=== PATIENT | female | born 1970 | race Caucasian/White ===

== ENCOUNTER 2017-09-29 00:15 | Emergency (ER) | payer OTHER ==
[~2017-09-29] VITALS: Ht 172.7 cm; Wt 119.3 kg
[~2017-09-29 00:15] MED LIST: ADVAIR; ALBUTEROL INH INH; ALBUTEROL2.5 MG/0.1 INH; ALBUTEROL2.5 MG/3 M IH; ALBUTEROL2.5 MG/3 M INH; ALBUTEROL2.5 MG/31 INH; AVELOX 400 MG400 MG PO; AZITHROMYCIN 2250 MG PO; BACTRIM DS TAB1 EACH PO; CARAFATE1 GM/10 ML PO; CIPROFLOXACIN500 M3 OR; COMBIVENT INH; DUONEB 2.5-0.5 M3 ML INH; HYDROCORTISONE3011 TP; LEVAQUIN 500 M500 M4 PO; LEVAQUIN 750 M750 MG PO; LEXAPRO 10 MG T10 M2; LORAZEPAM 0.50.5 M1 PO; MACROBID 100 M100 M1 PO; MEDROLDOSEPACK PO; MULTIVITAMINS; MULTIVITAMINS PO; NEBULIZER MISCELL; NORCO 5-325 TA1 EACH PO; OMEPRAZOLE; PERCOCET 7.5-31 EACH PO; PREDNISONE 10 M10 MG PO; PREDNISONE 20 M20 M1 PO; PREDNISONE 20 M20 MG PO; PREDNISONE50 MG PO; PROAIR HFA8.5 GM PO; PROTONIX40 M2 PO; PROTONIX40 MG PO; PROVENTIL HFA6.7 G1 INH; PROVENTIL IH; PYRIDIUM200 MG PO; ROXICODONE5 M1 PO; SERTRALINE HCL50 MG PO; SIMETHICON CHEW80 M1; SINGULAIR 10 MG10 M1; TESSALON PERLE100 M1 PO; TESSALON PERLE100 MG PO; TESSALON200 MG PO; VENTOLIN HFA 1818 GM INH; VICODIN 5-5001 EACH PO; VICODIN PO; VITAMIN D 5050000 I1 PO; VITAMIN D31000 UNI2 PO; XANAX 0.25 MG0.25 MG PO; ZOLOFT50 MG; ZPAK PO
[2017-09-29] MEDS ORDERED: LISINOPRIL2.5 MG PO (00:29)
[2017-09-29] MEDS ORDERED: LEXAPRO20 MG (00:30)
[2017-09-29] MEDS ORDERED: METFORMIN HCL500 MG (00:30)
[2017-09-29 01:16] LABS: ABSOLUTE BASOPHILS 0.1 thou/uL (0.0-0.2); ABSOLUTE EOSINOPHILS 0.2 thou/uL (0.0-0.7); ABSOLUTE LYMPHOCYTES 2.9 thou/uL (0.8-5.3); ABSOLUTE MONOCYTES 0.6 thou/uL (0.0-1.2); ABSOLUTE NEUTROPHILS 6.1 thou/uL (1.6-8.1); EOSINOPHILS 1.7 %; HEMATOCRIT 38.5 % (37.0-47.0); HEMOGLOBIN 12.5 gm/dL (12.0-15.0); LYMPHOCYTES 29.6 %; MCH 27.3 pg (26.0-34.0); MCHC 32.5 g/dL (28.0-37.0); MONOCYTES 5.7 %; MPV 7.7 fl. (7.2-11.1); NUCLEATED RBCS 0 /100WBC; PLATELET COUNT* 241 thou/uL (150-400); RBC 4.58 mil/uL (4.20-5.00); RDW-CV 14.7 % (10.5-14.5); WBC 9.8 thou/uL (4.0-11.0)
[2017-09-29 01:27] LABS: CALCIUM 8.7 mg/dL (8.5-10.1); CREATININE 0.9 mg/dL (0.6-1.3); POTASSIUM 3.5 mmol/L (3.5-5.1)
[2017-09-29 01:32] LABS: ALBUMIN 3.2 g/dL (3.4-5.0); TOTAL BILIRUBIN 0.4 mg/dL (<0.1-1.0); TOTAL PROTEIN 7.2 g/dL (6.4-8.2)
[2017-09-29 01:57] VITALS: BP 140/76
--- NOTE | 2017-09-29 10:40 | EKG ---
[place] [address] ELECTROCARDIOGRAM REPORT Name: MARIANELA ROBERTS Room: [facility]#: [id number] Admission: 09/29/17 Attend Phys: Discharge: 09/29/17 Date of : 74 Report #: [id number] THIS REPORT FOR: //name// [facility] ED Test Date: 2017-09-29 Test Time: 00:58:17 Pat Name: MARIANELA ROBERTS Department: Room: Gender: F Director Of Hospitality: CARLIN Castellanos : 1970 Requested By: Tara Stephens Order Number: [id number] MD: Yao Almanzar Measurements Intervals [place] Rate: 74 P: 10 DC: 130 QRS: 33 QRSD: 109 T: 34 QT: 387 QTc: 430 Interpretive Statements Sinus rhythm Borderline low voltage, extremity leads Compared to ECG 07/03/2016 19:06:29 No significant changes Electronically Signed On 09-29-2017 10:40:25 CDT by Yao Almanzar [email or web address] <ELECTRONICALLY SIGNED> By: Yao Almanzar MD, [facility] 09/29/17 1040 0058 0058 Yao Almanzar MD, FACC /EPI
== END 2017-09-29 01:59 | disposition home or self-care (01) ==
LOC: M.ERS 00:15
PROVIDERS: Emergency Medicine
DX: I10 Essential (primary) hypertension (principal); J45.909 Unspecified asthma, uncomplicated; E11.9 Type 2 diabetes mellitus without complications; F17.210 Nicotine dependence, cigarettes, uncomplicated; Z90.49 Acquired absence of other specified parts of digestive tract; Z88.5 Allergy status to narcotic agent; Z91.040 Latex allergy status; Z88.0 Allergy status to penicillin; Z88.6 Allergy status to analgesic agent

== ENCOUNTER 2017-10-18 09:53 | Emergency (ER) | payer OTHER ==
[~2017-10-18] VITALS: Ht 172.7 cm; Wt 117.9 kg
[~2017-10-18 09:53] MED LIST changes: +LEXAPRO20 MG; +LISINOPRIL2.5 MG PO; +METFORMIN HCL500 MG
[2017-10-18 10:11] LABS: ABSOLUTE EOSINOPHILS 0.1 thou/uL (0.0-0.7); ABSOLUTE LYMPHOCYTES 1.9 thou/uL (0.8-5.3); ABSOLUTE MONOCYTES 0.4 thou/uL (0.0-1.2); ABSOLUTE NEUTROPHILS 5.7 thou/uL (1.6-8.1); BASOPHILS 0.4 %; EOSINOPHILS 1.4 %; HEMATOCRIT 40.4 % (37.0-47.0); HEMOGLOBIN 13.1 gm/dL (12.0-15.0); LYMPHOCYTES 23.5 %; MCHC 32.4 g/dL (28.0-37.0); MCV 83.3 fL (80.0-100.0); MONOCYTES 5.4 %; MPV 7.4 fl. (7.2-11.1); NUCLEATED RBCS 0 /100WBC; PLATELET COUNT* 255 thou/uL (150-400); POLYS 69.3 %; RBC 4.84 mil/uL (4.20-5.00); RDW-CV 14.9 % (10.5-14.5); WBC 8.2 thou/uL (4.0-11.0)
[2017-10-18 10:20] LABS: ANION GAP 7 mmol/L (7-16); BUN 11 mg/dL (7-18); CALCIUM 8.7 mg/dL (8.5-10.1); CHLORIDE 100 mmol/L (98-107); CO2 27 mmol/L (21-32); CREATININE 0.7 mg/dL (0.6-1.3); GLUCOSE 141 mg/dL (70-99); POTASSIUM 3.8 mmol/L (3.5-5.1); SODIUM 134 mmol/L (136-145)
[2017-10-18 10:31] LABS: ALBUMIN 3.5 g/dL (3.4-5.0); ALKALINE PHOSPHATASE 109 U/L (46-116); LIPASE 112 U/L (73-393); MAGNESIUM 1.8 mg/dL (1.8-2.4); NT-PRO BRAIN NAT PEPTIDE 29 pg/mL (<300); SGOT 24 U/L (15-37); SGPT 35 U/L (30-65); TOTAL BILIRUBIN 0.6 mg/dL (<0.1-1.0); TOTAL PROTEIN 7.8 g/dL (6.4-8.2); TROPONIN-I LEVEL <0.06 ng/mL (<0.06)
[2017-10-18 13:10] VITALS: BP 132/75
--- NOTE | 2017-10-18 15:29 | EKG ---
[place] [address] ELECTROCARDIOGRAM REPORT Name: MARIANELA ROBERTS Room: [facility]#: [id number] Admission: 10/18/17 Attend Phys: Discharge: 10/18/17 Date of : 74 Report #: [id number] THIS REPORT FOR: //name// [facility] ED Test Date: 2017-10-18 Test Time: 09:59:24 Pat Name: MARIANELA ARMANDO Department: Room: Gender: F Syrup Mixer: Jasmin AMEZQUITA : 1970 Requested By: oJse Bush Order Number: [id number] MD: Yao Almanzar Measurements Intervals [place] Rate: 76 P: 22 [place]: 139 QRS: 24 QRSD: 102 T: 26 QT: 379 QTc: 427 Interpretive Statements Sinus rhythm Borderline low voltage, extremity leads Compared to ECG 09/29/2017 00:58:17 No significant changes Electronically Signed On 10-18-2017 15:29:19 CDT by Yao Almanzar [email or web address] <ELECTRONICALLY SIGNED> By: Yao Almanzar MD, [facility] 10/18/17 1529 0959 0959 Yao Almanzar MD, [facility] /EPI
--- NOTE | 2017-10-18 15:30 | EKG ---
[place] [address] ELECTROCARDIOGRAM REPORT Name: MARIANELA ROBERTS Room: [facility]#: [id number] Admission: 10/18/17 Attend Phys: Discharge: 10/18/17 Date of : 74 Report #: [id number] THIS REPORT FOR: //name// [facility] ED Test Date: 2017-10-18 Test Time: 12:18:15 Pat Name: MARIANELA ARMANDO Department: Room: Gender: F Mexican Food Machine Tender: MUSHTAQ : 1970 Requested By: Jose Bush Order Number: [id number] MD: Yao Almanzar Measurements Intervals [place] Rate: 67 P: -9 RI: 145 QRS: 28 QRSD: 107 T: 27 QT: 411 QTc: 434 Interpretive Statements Sinus rhythm Borderline low voltage, extremity leads Electronically Signed On 10-18-2017 15:30:03 CDT by Yao Almanzar [email or web address] <ELECTRONICALLY SIGNED> By: Yao Almanzar MD, [facility] 10/18/17 1530 1218 1218 Yao Almanzar MD, FACC /EPI
== END 2017-10-18 13:14 | disposition home or self-care (01) ==
LOC: M.ERS 09:53
PROVIDERS: Emergency Medicine Emergency Medical Services
DX: I10 Essential (primary) hypertension (principal); R07.89 Other chest pain; J45.909 Unspecified asthma, uncomplicated; E11.9 Type 2 diabetes mellitus without complications; Z88.5 Allergy status to narcotic agent; Z88.0 Allergy status to penicillin; Z88.6 Allergy status to analgesic agent; Z91.040 Latex allergy status; Z90.49 Acquired absence of other specified parts of digestive tract

== ENCOUNTER 2018-02-01 17:52 | Emergency (ER) | payer OTHER ==
[~2018-02-01] VITALS: Ht 172.7 cm; Wt 119.8 kg
[2018-02-01] MEDS ORDERED: LIPITOR40 MG PO (18:12)
[2018-02-01] MEDS ORDERED: TESSALON PERLE100 MG PO (18:16)
[2018-02-01] MEDS ORDERED: FLONASE 0.05%50 MCG NASAL (18:16)
[2018-02-01 19:08] LABS: INFLUENZA A ANTIGEN None Detected (None Detect); INFLUENZA B ANTIGEN None Detected (None Detect)
[2018-02-01] MEDS ORDERED: PREDNISONE 20 M20 MG PO (19:14)
[2018-02-01] MEDS ORDERED: PROAIR HFA8.5 GM INH (19:14)
[2018-02-01] MEDS ORDERED: DOXYCYCLINE 10100 MG PO (19:14)
[2018-02-01] MEDS ORDERED: PROMETHAZINE V473 ML PO (19:14)
[2018-02-01 19:34] VITALS: BP 129/64
--- NOTE | 2018-02-02 17:23 | EKG ---
[place] [address] ELECTROCARDIOGRAM REPORT Name: MARIANELA ROBERTS Room: [facility]#: [id number] Admission: 02/01/18 Attend Phys: Discharge: 02/01/18 Date of : 74 Report #: [id number] THIS REPORT FOR: //name// [facility] ED Test Date: 2018-02-01 Test Time: 18:09:05 Pat Name: MARIANELA ROBERTS Department: Room: Gender: F Rn Pool: Jasmin AMEZQUITA : 1970 Requested By: Ynae Larson Order Number: [id number] MD: Babak Jenkins Measurements Intervals [place] Rate: 74 P: 13 [place]: 123 QRS: 30 QRSD: 112 T: 33 QT: 397 QTc: 441 Interpretive Statements Sinus rhythm Borderline intraventricular conduction delay Compared to ECG 10/18/2017 12:18:15 No significant changes Electronically Signed On 02-02-2018 17:22:55 CDT by Babak Jenkins [email or web address] <ELECTRONICALLY SIGNED> By: Babak Jenkins MD, [facility] 02/02/18 1722 1809 08 Babak Jenkins MD, [facility] /EPI
== END 2018-02-01 19:34 | disposition home or self-care (01) ==
LOC: M.ERS 17:52
PROVIDERS: Physician Assistant
DX: J20.9 Acute bronchitis, unspecified (principal); I10 Essential (primary) hypertension; E11.9 Type 2 diabetes mellitus without complications; J45.909 Unspecified asthma, uncomplicated; Z88.5 Allergy status to narcotic agent; Z88.0 Allergy status to penicillin; Z88.6 Allergy status to analgesic agent; Z91.040 Latex allergy status; Z90.49 Acquired absence of other specified parts of digestive tract

== ENCOUNTER 2018-06-11 20:32 | Emergency (ER) | payer OTHER ==
[~2018-06-11] VITALS: Ht 172.7 cm; Wt 119.3 kg
[~2018-06-11 20:32] MED LIST changes: +DOXYCYCLINE 10100 MG PO; +FLONASE 0.05%50 MCG NASAL; +LIPITOR40 MG PO; +PROAIR HFA8.5 GM INH; +PROMETHAZINE V473 ML PO
[2018-06-11] MEDS ORDERED: PREDNISONE 10 M10 MG PO (21:03)
[2018-06-11] MEDS ORDERED: LISINOPRIL5 MG PO (21:03)
[2018-06-11] MEDS ORDERED: ALLEGRA ALLERGY60 MG PO (21:04)
[2018-06-11] MEDS ORDERED: ZYRTEC10 M5 PO (21:04)
[2018-06-11] MEDS ORDERED: PREDNISONE50 MG PO (21:33)
[2018-06-11] MEDS ORDERED: PROAIR HFA8.5 GM INH (21:38)
[2018-06-11] MEDS ORDERED: ALBUTEROL2.5 MG/31 INH (21:38)
[2018-06-11 21:44] VITALS: BP 141/90
[2018-06-12] MEDS ORDERED: TESSALON PERLE100 MG PO (18:03)
[2018-06-12] MEDS ORDERED: TESSALON PERLE100 M1 PO (19:11)
== END 2018-06-11 21:45 | disposition home or self-care (01) ==
LOC: M.ERS 20:32
DX: J45.909 Unspecified asthma, uncomplicated (principal); I10 Essential (primary) hypertension; E11.9 Type 2 diabetes mellitus without complications; Z90.49 Acquired absence of other specified parts of digestive tract; Z88.0 Allergy status to penicillin; Z88.5 Allergy status to narcotic agent; Z91.040 Latex allergy status

== ENCOUNTER 2018-06-12 17:23 | Emergency (ER) | payer OTHER ==
[~2018-06-12] VITALS: Ht 172.7 cm; Wt 119.3 kg
[~2018-06-12 17:23] MED LIST changes: +ALLEGRA ALLERGY60 MG PO; +LISINOPRIL5 MG PO; +ZYRTEC10 M5 PO
[2018-06-12] MEDS ORDERED: TESSALON PERLE100 MG PO (18:03)
[2018-06-12 18:13] LABS: ABSOLUTE BASOPHILS 0.1 thou/uL (0.0-0.2); ABSOLUTE EOSINOPHILS 0.1 thou/uL (0.0-0.7); ABSOLUTE LYMPHOCYTES 3.2 thou/uL (0.8-5.3); ABSOLUTE MONOCYTES 0.7 thou/uL (0.0-1.2); BASOPHILS 0.9 %; HEMATOCRIT 37.1 % (37.0-47.0); LYMPHOCYTES 35.1 %; MCH 26.7 pg (26.0-34.0); MCHC 32.2 g/dL (28.0-37.0); MCV 82.8 fL (80.0-100.0); MONOCYTES 7.2 %; MPV 7.1 fl. (7.2-11.1); NUCLEATED RBCS 0 /100WBC; PLATELET COUNT* 247 thou/uL (150-400); POLYS 55.8 %; RBC 4.48 mil/uL (4.20-5.00); RDW-CV 14.6 % (10.5-14.5)
[2018-06-12 18:34] LABS: ANION GAP 9 mmol/L (7-16); BUN 11 mg/dL (7-18); CALCIUM 8.9 mg/dL (8.5-10.1); CHLORIDE 102 mmol/L (98-107); CO2 29 mmol/L (21-32); CREATININE 0.7 mg/dL (0.6-1.3); GLUCOSE 132 mg/dL (70-99); POTASSIUM 3.3 mmol/L (3.5-5.1); SODIUM 140 mmol/L (136-145); TROPONIN-I LEVEL <0.06 ng/mL (<0.06)
[2018-06-12 18:35] LABS: ALBUMIN 3.4 g/dL (3.4-5.0); ALKALINE PHOSPHATASE 109 U/L (46-116); NT-PRO BRAIN NAT PEPTIDE 94 pg/mL (<300); SGOT 14 U/L (15-37); SGPT 28 U/L (30-65); TOTAL BILIRUBIN 0.4 mg/dL (<0.1-1.0); TOTAL PROTEIN 7.3 g/dL (6.4-8.2)
[2018-06-12 18:47] LABS: APTT 23.6 Seconds (25.0-31.3); PROTIME 9.8 Seconds (9.20-11.50)
[2018-06-12 19:07] VITALS: BP 155/82
[2018-06-12] MEDS ORDERED: TESSALON PERLE100 M1 PO (19:11)
--- NOTE | 2018-06-13 09:12 | EKG ---
[place] [address] ELECTROCARDIOGRAM REPORT Name: MARIANELA ROBERTS Room: [facility]#: [id number] Admission: 06/12/18 Attend Phys: Discharge: 06/12/18 Date of : 74 Report #: [id number] THIS REPORT FOR: //name// [facility] ED Test Date: 2018-06-12 Test Time: 17:56:47 Pat Name: MARIANELA ROBERTS Department: Room: Gender: F Home Health Scheduler: VICKY : 1970 Requested By: Jose Buhs Order Number: [id number] MD: Yao Almanzar Measurements Intervals [place] Rate: 78 P: 26 [place]: 152 QRS: 27 QRSD: 113 T: 30 QT: 404 QTc: 461 Interpretive Statements Sinus rhythm Borderline intraventricular conduction delay Compared to ECG 02/01/2018 18:09:05 No significant changes Electronically Signed On 06-13-2018 9:12:26 CDT by Yao Almanzar [email or web address] <ELECTRONICALLY SIGNED> By: Yao Almanzar MD, [facility] 06/13/18911 55 55 Yao Almanzar MD, FACC /EPI
== END 2018-06-12 19:09 | disposition home or self-care (01) ==
LOC: M.ERS 17:23
PROVIDERS: Emergency Medicine Emergency Medical Services
DX: J45.901 Unspecified asthma with (acute) exacerbation (principal); I10 Essential (primary) hypertension; E11.9 Type 2 diabetes mellitus without complications; Z91.040 Latex allergy status; Z88.0 Allergy status to penicillin; Z88.5 Allergy status to narcotic agent; Z88.6 Allergy status to analgesic agent; Z90.49 Acquired absence of other specified parts of digestive tract

== ENCOUNTER 2018-07-18 18:25 | Emergency (ER) | payer OTHER ==
[~2018-07-18] VITALS: Ht 172.7 cm; Wt 122.2 kg
[2018-07-18] MEDS ORDERED: LEXAPRO20 MG PO (18:34)
[2018-07-18 18:54] LABS: ABSOLUTE BASOPHILS 0.1 thou/uL (0.0-0.2); ABSOLUTE EOSINOPHILS 0.1 thou/uL (0.0-0.7); ABSOLUTE LYMPHOCYTES 2.7 thou/uL (0.8-5.3); ABSOLUTE MONOCYTES 0.4 thou/uL (0.0-1.2); ABSOLUTE NEUTROPHILS 5.4 thou/uL (1.6-8.1); BASOPHILS 0.9 %; EOSINOPHILS 1.5 %; HEMATOCRIT 37.8 % (37.0-47.0); HEMOGLOBIN 12.4 gm/dL (12.0-15.0); LYMPHOCYTES 30.7 %; MCH 26.6 pg (26.0-34.0); MCHC 32.8 g/dL (28.0-37.0); MCV 81.1 fL (80.0-100.0); MONOCYTES 4.6 %; MPV 7.4 fl. (7.2-11.1); NUCLEATED RBCS 0 /100WBC; PLATELET COUNT* 277 thou/uL (150-400); POLYS 62.3 %; RBC 4.66 mil/uL (4.20-5.00); RDW-CV 14.4 % (10.5-14.5); WBC 8.7 thou/uL (4.0-11.0)
[2018-07-18 19:12] LABS: ANION GAP 8 mmol/L (7-16); BUN 17 mg/dL (7-18); CHLORIDE 103 mmol/L (98-107); CO2 28 mmol/L (21-32); CREATININE 0.8 mg/dL (0.6-1.3); GLUCOSE 173 mg/dL (70-99); POTASSIUM 3.9 mmol/L (3.5-5.1); SODIUM 139 mmol/L (136-145); TROPONIN-I LEVEL <0.06 ng/mL (<0.06)
[2018-07-18 19:15] LABS: ALBUMIN 3.5 g/dL (3.4-5.0); ALKALINE PHOSPHATASE 123 U/L (46-116); LIPASE 122 U/L (73-393); SGOT 16 U/L (15-37); SGPT 25 U/L (30-65); TOTAL BILIRUBIN 0.4 mg/dL (<0.1-1.0); TOTAL PROTEIN 7.6 g/dL (6.4-8.2)
[2018-07-18 20:16] LABS: URINE BILIRUBIN NEGATIVE (Negative); URINE BLOOD NEGATIVE (Negative); URINE CLARITY CLEAR; URINE COLOR YELLOW; URINE GLUCOSE-RANDOM NEGATIVE (Negative); URINE KETONES NEGATIVE (Negative); URINE LEUKOCYTES-REFLEX NEGATIVE (Negative); URINE NITRITE-REFLEX NEGATIVE (Negative); URINE PROTEIN NEGATIVE (Negative); URINE SPECIFIC GRAVITY >= 1.030 (1.005-1.030); URINE UROBILINOGEN 0.2 E.U./dl (0.2-1.0)
[2018-07-18] MEDS ORDERED: NORCO 5-325 TA1 EACH PO (21:29)
[2018-07-18 22:45] VITALS: BP 179/100
--- NOTE | 2018-07-19 11:30 | EKG ---
[place] [address] ELECTROCARDIOGRAM REPORT Name: MARIANELA ROBRETS Room: [facility]#: [id number] Admission: 07/18/18 Attend Phys: Discharge: 07/18/18 Date of : 74 Report #: [id number] THIS REPORT FOR: //name// [facility] ED Test Date: 2018-07-18 Test Time: 18:37:19 Pat Name: MARIANELA ARMANDO Department: Room: Gender: F Residential Building Inspector: [place] : 1970 Requested By: Yane Larson Order Number: [id number] MD: Mark Lucero Measurements Intervals [place] Rate: 70 P: 30 DC: 140 QRS: 25 QRSD: 107 T: 48 QT: 392 QTc: 423 Interpretive Statements Sinus rhythm Compared to ECG 06/12/2018 17:56:47 No significant changes Electronically Signed On 07-19-2018 11:30:08 CDT by Mark Lucero [email or web address] <ELECTRONICALLY SIGNED> By: Mark Lucero MD, [facility] 07/19/18 1130 36 36 Mark Lucero MD, FAC /EPI
== END 2018-07-18 22:45 | disposition home or self-care (01) ==
LOC: M.ERS 18:25
PROVIDERS: Physician Assistant
DX: M51.86 Other intervertebral disc disorders, lumbar region (principal); R07.81 Pleurodynia; E11.9 Type 2 diabetes mellitus without complications; I10 Essential (primary) hypertension; J45.909 Unspecified asthma, uncomplicated; Z88.5 Allergy status to narcotic agent; Z91.040 Latex allergy status; Z88.0 Allergy status to penicillin; Z90.49 Acquired absence of other specified parts of digestive tract

== ENCOUNTER 2018-08-09 22:37 | Emergency (ER) | payer OTHER ==
[~2018-08-09] VITALS: Ht 172.7 cm; Wt 114.8 kg
[~2018-08-09 22:37] MED LIST changes: +LEXAPRO20 MG PO
[2018-08-09] MEDS ORDERED: SINGULAIR 10 MG10 M1 PO (22:44)
[2018-08-09] MEDS ORDERED: PREDNISONE 20 M20 M1 PO (23:23)
[2018-08-09 23:39] VITALS: BP 133/87
== END 2018-08-09 23:39 | disposition home or self-care (01) ==
LOC: M.ERS 22:37
DX: J45.901 Unspecified asthma with (acute) exacerbation (principal); I10 Essential (primary) hypertension; E11.9 Type 2 diabetes mellitus without complications; Z88.0 Allergy status to penicillin; Z88.5 Allergy status to narcotic agent; Z91.040 Latex allergy status; Z90.49 Acquired absence of other specified parts of digestive tract

== ENCOUNTER 2019-03-29 18:18 | Emergency (ER) | payer OTHER ==
[~2019-03-29] VITALS: Ht 172.7 cm; Wt 116.1 kg
[~2019-03-29 18:18] MED LIST changes: +SINGULAIR 10 MG10 M1 PO
[2019-03-29] MEDS ORDERED: VITAMIN D350000 UNIT PO (18:44)
[2019-03-29 18:54] LABS: URINE BILIRUBIN NEGATIVE (Negative); URINE BLOOD NEGATIVE (Negative); URINE CLARITY CLEAR; URINE COLOR YELLOW; URINE GLUCOSE-RANDOM NEGATIVE (Negative); URINE KETONES 1+ (Negative); URINE LEUKOCYTES-REFLEX NEGATIVE (Negative); URINE NITRITE-REFLEX NEGATIVE (Negative); URINE PROTEIN NEGATIVE (Negative); URINE SPECIFIC GRAVITY >= 1.030 (1.005-1.030); URINE UROBILINOGEN 0.2 E.U./dl (0.2-1.0)
[2019-03-29 18:59] LABS: HEMATOCRIT 41.2 % (37.0-47.0); HEMOGLOBIN 13.4 gm/dL (12.0-15.0); MCH 26.3 pg (26.0-34.0); MCHC 32.6 g/dL (28.0-37.0); MCV 80.7 fL (80.0-100.0); MPV 7.3 fl. (7.2-11.1); NUCLEATED RBCS 0 /100WBC; PLATELET COUNT* 319 thou/uL (150-400); WBC 14.3 thou/uL (4.0-11.0)
[2019-03-29 19:07] LABS: CREATININE 0.8 mg/dL (0.6-1.3); POTASSIUM 3.6 mmol/L (3.5-5.1)
[2019-03-29 19:11] LABS: ALBUMIN 3.9 g/dL (3.4-5.0); TOTAL BILIRUBIN 1.2 mg/dL (<0.1-1.0); TOTAL PROTEIN 8.2 g/dL (6.4-8.2)
[2019-03-29 19:21] LABS: ABSOLUTE LYMPHOCYTES 0.9 thou/uL (0.8-5.3); ABSOLUTE MONOCYTES 0.3 thou/uL (0.0-1.2); ABSOLUTE NEUTROPHILS 13.2 thou/uL (1.6-8.1); PLATELET ESTIMATE ADEQUATE
[2019-03-29] MEDS ORDERED: ONDANSETRON ODT4 MG PO (21:09)
[2019-03-29 22:01] VITALS: BP 178/98
--- NOTE | 2019-03-30 12:57 | EKG ---
[place] [address] ELECTROCARDIOGRAM REPORT Name: MARIANELA ROBERTS Room: [facility]#: [id number] Admission: 03/29/19 Attend Phys: Discharge: 03/29/19 Date of : 74 Report #: [id number] THIS REPORT FOR: //name// [facility] ED Test Date: 2019-03-29 Test Time: 20:30:02 Pat Name: MARINAELA ROBERTS Department: Room: Gender: F Heading Repairer: : 1970 Requested By: Yohannes Dior Order Number: [id number] MD: Yao Almanzar Measurements Intervals [place] Rate: 95 P: 17 SD: 140 QRS: 18 QRSD: 94 T: 27 QT: 356 QTc: 448 Interpretive Statements Sinus rhythm Low voltage, extremity leads Compared to ECG 07/18/2018 18:37:19 Low QRS voltage now present Electronically Signed On 03-30-2019 12:57:07 FINISH GRINDER by Yao Almanzar [email or web address] <ELECTRONICALLY SIGNED> By: Yao Almanzar MD, [facility] 03/30/19 1257 2030 29 Yao Almanzar MD, FACC /EPI
== END 2019-03-29 22:02 | disposition home or self-care (01) ==
LOC: M.ERS 18:18
PROVIDERS: Physician Assistant
DX: R11.2 Nausea with vomiting, unspecified (principal); R19.7 Diarrhea, unspecified; R10.84 Generalized abdominal pain; J45.909 Unspecified asthma, uncomplicated; I10 Essential (primary) hypertension; E11.9 Type 2 diabetes mellitus without complications; Z88.5 Allergy status to narcotic agent; Z88.0 Allergy status to penicillin; Z91.040 Latex allergy status; Z90.49 Acquired absence of other specified parts of digestive tract

== ENCOUNTER 2019-05-06 02:44 | Emergency (ER) | payer OTHER ==
[~2019-05-06] VITALS: Ht 172.7 cm; Wt 115.2 kg
[~2019-05-06 02:44] MED LIST changes: +ONDANSETRON ODT4 MG PO; +VITAMIN D350000 UNIT PO
[2019-05-06] MEDS ORDERED: COZAAR 25 MG TA25 M1 PO (03:12)
[2019-05-06] MEDS ORDERED: PROTONIX40 M1 PO (03:12)
[2019-05-06] MEDS ORDERED: DOXYCYCLINE 10100 MG PO (04:15)
[2019-05-06 04:40] VITALS: BP 186/94
== END 2019-05-06 04:42 | disposition home or self-care (01) ==
LOC: M.ERS 02:44
DX: S61.210A Laceration without foreign body of right index finger without damage to nail, initial encounter (principal); S20.212A Contusion of left front wall of thorax, initial encounter; I10 Essential (primary) hypertension; E11.9 Type 2 diabetes mellitus without complications; J45.909 Unspecified asthma, uncomplicated; Z90.49 Acquired absence of other specified parts of digestive tract; Z91.040 Latex allergy status; Z88.0 Allergy status to penicillin; Z88.6 Allergy status to analgesic agent; Y04.1XXA Assault by human bite, initial encounter; Y93.89 Activity, other specified; Y92.89 Other specified places as the place of occurrence of the external cause; Y99.8 Other external cause status

== ENCOUNTER 2019-10-28 20:48 | Emergency (ER) | payer OTHER ==
[~2019-10-28] VITALS: Ht 162.6 cm; Wt 113.4 kg
[~2019-10-28 20:48] MED LIST changes: +COZAAR 25 MG TA25 M1 PO; +PROTONIX40 M1 PO
[2019-10-28] MEDS ORDERED: JARDIANCE25 MG PO (20:59)
[2019-10-28] MEDS ORDERED: BUSPAR30 MG PO (21:00)
[2019-10-28] MEDS ORDERED: [UNRECOGNIZED DRUG - OTHER] (21:00)
[2019-10-28] MEDS ORDERED: KEFLEX500 M1 PO (21:16)
[2019-10-28] MEDS ORDERED: PREDNISONE 20 M20 M1 PO (21:16)
[2019-10-28 21:34] VITALS: BP 128/76
== END 2019-10-28 21:35 | disposition home or self-care (01) ==
LOC: M.ERS 20:48
DX: S40.261A Insect bite (nonvenomous) of right shoulder, initial encounter (principal); L08.9 Local infection of the skin and subcutaneous tissue, unspecified; Z88.0 Allergy status to penicillin; Z88.5 Allergy status to narcotic agent; Z91.040 Latex allergy status; W57.XXXA Bitten or stung by nonvenomous insect and other nonvenomous arthropods, initial encounter; Y93.89 Activity, other specified; Y92.89 Other specified places as the place of occurrence of the external cause; Y99.8 Other external cause status